=== PATIENT | male | born 1950 | race Caucasian/White ===

== ENCOUNTER 2017-10-25 06:09 | Observation (INO) | payer MEDICARE, BC ==
[~2017-10-25] VITALS: Ht 182.9 cm; Wt 105.3 kg
[2017-10-25] MEDS ORDERED: SODIUM CHLORIDE 0.9% 1,000 ML IV SCH (06:27)
[2017-10-25] MEDS ORDERED: CEFAZOLIN PMX 1GM/50ML 50 ML IVPB ONE (06:30)
[2017-10-25 06:42] VITALS: BP 116/78
[2017-10-25] MEDS ORDERED: ATOR40TA PO (06:50)
[2017-10-25] MEDS ORDERED: CITA10TA4 PO (06:50)
[2017-10-25] MEDS ORDERED: LISI5TAB7 PO (06:50)
[2017-10-25] MEDS ORDERED: FINA1TAB16 PO (06:50)
[2017-10-25] MEDS ORDERED: FENTANYL PF 100 MCG/2ML ONE (07:49)
[2017-10-25] MEDS ORDERED: MIDAZOLAM 1 MG/ML, 5ML ONE (07:49)
[2017-10-25] MEDS ORDERED: CEFAZOLIN PMX 1GM/50ML 50 ML ONE (07:50)
[2017-10-25] MEDS ORDERED: LIDOCAINE/PF 1%, 30ML ONE (07:50)
[2017-10-25] MEDS ORDERED: CEFAZOLIN 1,000 MG ONE (07:50)
[2017-10-25] MEDS ORDERED: ZOLPIDEM 5MG TABLET PO PRN (09:30)
[2017-10-25] MEDS ORDERED: ACETAMINOPHEN 325 MG TABLET PO PRN (09:30)
[2017-10-25] MEDS ORDERED: HYDROcodone/APAP 5/325 TABLET PO PRN (09:30)
[2017-10-25] MEDS: CEFAZOLIN PMX 1GM/50ML 50 ML IVPB SCH (17:04)
[2017-10-25 17:15] VITALS: BP 112/73
[2017-10-25 19:24] VITALS: BP 138/72
[2017-10-25] MEDS ORDERED: ATORVASTATIN 40 MG TABLET PO SCH (21:00)
[2017-10-25] MEDS: SODIUM CHLORIDE FLUSH 10ML SYR IVF SCH (21:45)
[2017-10-26] MEDS: CEFAZOLIN PMX 1GM/50ML 50 ML IVPB SCH (01:10)
[2017-10-26 02:00] VITALS: BP 119/75
[2017-10-26 08:11] VITALS: BP 112/72
[2017-10-26] MEDS: SODIUM CHLORIDE FLUSH 10ML SYR IVF SCH (08:12)
[2017-10-26] MEDS ORDERED: ACET325T14 PO (08:28)
[2017-10-26] MEDS ORDERED: TEMPLATE NON-FORMULARY MED. (Finasteride** 1 MG) PO SCH (09:00)
[2017-10-26] MEDS ORDERED: LISINOPRIL 5 MG TABLET PO SCH (10:00)
[2017-10-26] MEDS ORDERED: CITALOPRAM 10 MG TABLET PO SCH (10:00)
== END 2017-10-26 10:11 | disposition home or self-care (01) ==
LOC: CACL 06:09 → ORIP 09:09 → 5SO 09:22 → DCLOUNGE 10-26 09:50
PROVIDERS: ADMIT Internal Medicine Cardiovascular Disease; ATTEND Internal Medicine Cardiovascular Disease
DX: I49.5 Sick sinus syndrome (principal); R55 Syncope and collapse; I10 Essential (primary) hypertension
CPT/HCPCS: 33208; 71045; 96365; 96375; 99156; 99157; C1769; C1779; C1785; C1892; G0378; J0690; J2250; J3010; J3490